=== PATIENT | female | born 1955 | race Caucasian/White ===

== ENCOUNTER 2018-02-12 19:16 | Emergency (ER) | payer OTHER ==
[~2018-02-12] VITALS: Ht 167.6 cm; Wt 118.4 kg
[~2018-02-12 19:16] MED LIST: HYDR1TAB12 PO
[2018-02-12] MEDS ORDERED: methylPREDNISolone SOD SUCC PF 125 MG/2 ML VIAL. IV ONE (19:45)
[2018-02-12] MEDS ORDERED: ONDANSETRON PF 4 MG/2 ML VIAL. IV ONE (19:45)
[2018-02-12] MEDS ORDERED: diphenhydrAMINE 50 MG/ML VIAL IM ONE (19:45)
--- NOTE | 2018-02-12 19:45 | PHYS DOC ---
Past History Past Medical History: No Pertinent History Past Surgical History: Other Smoking: Non-smoker Alcohol Use: Rarely Drug Use: None Adult General Chief Complaint Chief Complaint: HEADACHE [facility] HPI 62-year-old female patient with history of migraine headaches complaining of frontal sharp pain for the last 3 days with nausea and photophobia and phonophobia and rated her pain 6/10. Patient denies acute neck pain, focal neuro deficit, fever and chills, vomiting. Patient states she usually doesn't have nausea with her migraine headaches but this time she had nausea. Patient states she didn't continue [id number] or prescribed pain medication for the last 3 days. Review of Systems Review of Systems Constitutional: Denies fever or chills [] Eyes: Denies change in visual acuity, redness, or eye pain [] HENT: Denies nasal congestion or sore throat [] Respiratory: Denies cough or shortness of breath [] Cardiovascular: No additional information not addressed in HPI [] GI: Denies abdominal pain, nausea, vomiting, bloody stools or diarrhea [] : Denies dysuria or hematuria [] Musculoskeletal: Denies back pain or joint pain [] Integument: Denies rash or skin lesions [] Neurologic: Reports headache, denies focal weakness or sensory changes [] Endocrine: Denies polyuria or polydipsia [] All other systems were reviewed and found to be within normal limits, except as documented in this note. Allergies Allergies Allergies Coded Allergies Type Severity Reaction Last Updated Verified NSAIDS (Non-Steroidal Anti-Inflamma Allergy Unknown 01/04/14 No Physical Exam Physical Exam Constitutional: Well developed, well nourished, mild distress, non-toxic appearance. [] HENT: Normocephalic, atraumatic, bilateral external ears normal, oropharynx moist, no oral exudates, nose normal. [] Eyes: PERRLA, EOMI, conjunctiva normal, no discharge. [] Neck: Normal range of motion, no tenderness, supple, no stridor. [] Cardiovascular:Heart rate regular rhythm, no murmur [] Lungs & Thorax: Bilateral breath sounds clear to auscultation [] Abdomen: Bowel sounds normal, soft, no tenderness, no masses, no pulsatile masses. [] Skin: Warm, dry, no erythema, no rash. [] Back: No tenderness, no CVA tenderness. [] Extremities: No tenderness, no cyanosis, no clubbing, ROM intact, no edema. [] Neurologic: Alert and oriented X 3, normal motor function, normal sensory function, no focal deficits noted. [] Psychologic: Affect anxious, judgement normal, mood normal. [] EKG EKG [] Radiology/Procedures Radiology/Procedures [] Course & Med Decision Making Course & Med Decision Making Evaluation of patient in ER showed 62-year-old female patient with history of migraine headaches presented to ER with complaining of headache for the last 2 days with nausea. Patient had unremarkable physical exam and felt better with treatment in ER. Patient didn't want to have narcotic pain medication in ER or for home. Dragon Disclaimer Dragon Disclaimer This electronic medical record was generated, in whole or in part, using a voice recognition dictation system. Departure Departure: Impression: Primary Impression: Migraine headache Disposition: HOME, SELF-CARE (at 2044) Condition: IMPROVED Referrals: PCP,NO (PCP) Patient Instructions: Migraine Headache Additional Instructions: Drink plenty of liquids Follow-up with your primary care physician in 3-5 days Return to ER if not getting better Scripts Ondansetron (ZOFRAN ODT) 4 Mg Tab.rapdis 1 TAB SL Q8HRS, #15 TAB Prov: LILIANE BORJAS MD 02/12/18 Butalbital/Aspirin/Caffeine (FIORINAL 50-325-40 MG CAPSULE) 1 Each Capsule 1 EACH PO QID PRN for HEADACHE, #20 CAP Prov: LILIANE BORJAS MD 02/12/18 LILIANE BORJAS MD Feb 12, 2018 19:45
[2018-02-12] MEDS ORDERED: IV NORMAL SALINE 500ML 500 ML IV ONE (20:00)
[2018-02-12] MEDS ORDERED: diphenhydrAMINE 50 MG/ML VIAL IVP ONE (20:15)
[2018-02-12] MEDS ORDERED: BUTA1CAP31 PO (20:48)
[2018-02-12] MEDS ORDERED: ONDA4TAB10 SL (20:48)
[2018-02-12 21:13] VITALS: BP 131/86
== END 2018-02-12 21:19 | disposition home or self-care (01) ==
LOC: ER 19:16
DX: G43.909 Migraine, unspecified, not intractable, without status migrainosus (principal); Z88.6 Allergy status to analgesic agent
CPT/HCPCS: 96374; 96375; 99284; J1200; J2405; J2930; J7040

== ENCOUNTER 2018-02-21 18:32 | Emergency (ER) | payer OTHER ==
[~2018-02-21] VITALS: Ht 167.6 cm; Wt 118.4 kg
[~2018-02-21 18:32] MED LIST changes: +BUTA1CAP31 PO; +ONDA4TAB10 SL
--- NOTE | 2018-02-21 18:45 | ED.ADGEN ---
Past History Past Medical History: Arthritis, Migraines, Sinusitis Past Surgical History: Other Smoking: Non-smoker Alcohol Use: Rarely Drug Use: None Adult General Chief Complaint Chief Complaint ".. My head ache is no better.. I was seen on 02/13.. 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 Pt. seen on 02/13 Dr. Harrison with above hx and complaints. Pt. tx. for headache as Rx home- received Fiorinal and Zofran. Pt. to follow up. Pt. returns tonight with similar complaints as 02/13. Patient has no primary care. Patient had migraines for years. Findings are intermittent but the primary inciting factor is stress. Patient reports that high stress job and a recent diagnosis of diabetes poor control with a significant other. Patient has not had a CT evaluation of head since 2013. No history of travel. No history of trauma. No history of fever or chills. Has been exposed to other people in the family with colds. Patient denies any history of immunosuppression. Patient has never had a spinal tap for her headaches. Pain is usually relieved by home meds. Patient has a history of allergy to NSAIDs. Review of Systems Review of Systems Constitutional: Denies fever or chills [] Eyes: Denies change in visual acuity, redness, or eye pain []complaints of photophobia HENT: Denies nasal congestion or sore throat []complaints of photophobia Respiratory: Denies cough or shortness of breath [] Cardiovascular: No additional information not addressed in HPI [] GI: Denies abdominal pain, vomiting, bloody stools or diarrhea []history of nausea : Denies dysuria or hematuria [] Musculoskeletal: Denies back pain or joint pain [] Integument: Denies rash or skin lesions [] Neurologic: Complains of headache. Denies focal weakness or sensory changes [] Endocrine: Denies polyuria or polydipsia [] All other systems were reviewed and found to be within normal limits, except as documented in this note. Family History Family History Noncontributory Current Medications Current Medications Current Medications Medications (Trade) Dose Ordered Sig/Bishop Start Time Stop Time Status Last Admin Dose Admin Ceftriaxone Sodium (Rocephin Im) 1 gm 1X ONCE 02/21/18 20:15 02/21/18 20:21 DC 02/21/18 21:38 1 GM Clonidine HCl (Catapres Tts-2) 0.2 patch 1X ONCE 02/21/18 19:30 02/21/18 19:31 DC 02/21/18 20:26 0.2 PATCH Clonidine HCl (Catapres) 0.2 mg 1X ONCE 02/21/18 19:30 02/21/18 19:31 DC 02/21/18 20:05 0.2 MG Diphenhydramine HCl (Benadryl) 50 mg 1X ONCE 02/21/18 19:15 02/21/18 19:17 DC 02/21/18 20:04 50 MG Lactated Ringer's 1,000 ml @ 1,000 mls/hr 1X ONCE 02/21/18 19:15 02/21/18 20:14 DC 02/21/18 20:02 1,000 MLS/HR Prednisone (Prednisone) 60 mg 1X ONCE 02/21/18 20:15 02/21/18 20:21 DC 02/21/18 21:38 60 MG Prochlorperazine Edisylate (Compazine) 10 mg 1X ONCE 02/21/18 19:15 02/21/18 19:17 DC 02/21/18 20:04 10 MG Sodium Chloride 50 ml @ As Directed STK-MED ONCE 02/21/18 19:55 02/21/18 19:56 DC Sumatriptan Succinate (Imitrex) 6 mg 1X ONCE 02/21/18 20:45 02/21/18 20:57 DC 02/21/18 21:39 6 MG Valproic Acid (Depacon) 500 mg STK-MED ONCE 02/21/18 19:56 02/21/18 19:57 DC Valproic Acid 500 mg/Sodium Chloride 55 ml @ 55 mls/hr 1X STAT 02/21/18 19:06 02/21/18 20:05 DC 02/21/18 20:03 55 MLS/HR Allergies Allergies Allergies Coded Allergies Type Severity Reaction Last Updated Verified NSAIDS (Non-Steroidal Anti-Inflamma Allergy Unknown 01/04/14 No Physical Exam Physical Exam Constitutional: Mild to moderate distress, non-toxic appearance. [] HENT: Normocephalic, atraumatic, bilateral external ears normal, oropharynx moist, no oral exudates, nose normal. [] Eyes: PERRLA, EOMI, conjunctiva normal, no discharge. [] Neck: Normal range of motion, no tenderness, supple, no stridor. [] Cardiovascular:Heart rate regular rhythm, no murmur [] Lungs & Thorax: Bilateral breath sounds clear to auscultation [] Abdomen: Bowel sounds normal, soft, no tenderness, no masses, no pulsatile masses. [] Skin: Warm, dry, no erythema, no rash. [] Back: No tenderness, no CVA tenderness. [] Extremities: No tenderness, no cyanosis, no clubbing, ROM intact, no edema. good. Patient ambulatory without problems Neurologic: Alert and oriented X 3, normal motor function, normal sensory function, no focal deficits noted. []DTR +2 patella and brachial. No drift. [employer] Operator Truck Driver equal. Psychologic: Affect anxious judgement normal, mood normal. [] Current Patient Data Vital Signs Vital Signs Date Time Temp Pulse Resp B/P (MAP) Pulse Ox O2 Delivery O2 Flow Rate FiO2 02/21/18 22:30 64 18 120/62 (81) 96 Room Air 02/21/18 18:32 98.4 Lab Results Laboratory Tests Test 02/21/18 18:55 02/21/18 19:20 Urine Collection Type Unknown Urine Color Yellow Urine Clarity Clear Urine pH 6.0 Urine Specific [place] 1.020 Urine Protein Neg (NEG-TRACE) Urine Glucose (UA) Neg mg/dL (NEG) Urine Ketones (Stick) Neg mg/dL (NEG) Urine Blood Large (NEG) Urine Nitrite Neg (NEG) Urine Bilirubin Neg (NEG) Urine Urobilinogen Dipstick 0.2 mg/dL (0.2 mg/dL) Urine Leukocyte Esterase Neg (NEG) Urine RBC 11-20 /HPF (0-2) Urine WBC Occ /HPF (0-4) Urine Squamous Epithelial Cells Mod /LPF Urine Bacteria Few /HPF (0-FEW) Urine Mucus Slight /LPF Urine Opiates Screen Neg (NEG) Urine Methadone Screen Neg (NEG) Urine Barbiturates Neg (NEG) Urine Phencyclidine Screen Neg (NEG) Urine Amphetamine/Methamphetamine Neg (NEG) Urine Benzodiazepines Screen Neg (NEG) Urine Cocaine Screen Neg (NEG) Urine Cannabinoids Screen Neg (NEG) Urine Ethyl Alcohol Neg (NEG) White Blood Count 10.1 x10^3/uL (4.0-11.0) Red Blood Count 4.40 x10^6/uL (3.50-5.40) Hemoglobin 12.1 g/dL (12.0-15.5) Hematocrit 36.5 % (36.0-47.0) Mean Corpuscular Volume 83 fL (79-100) Mean Corpuscular Hemoglobin 28 pg (25-35) Mean Corpuscular Hemoglobin Concent 33 g/dL (31-37) Red Cell Distribution Width 16.3 % (11.5-14.5) H Platelet Count 236 x10^3/uL (140-400) Neutrophils (%) (Auto) 70 % (31-73) Lymphocytes (%) (Auto) 20 % (24-48) L Monocytes (%) (Auto) 8 % (0-9) Eosinophils (%) (Auto) 2 % (0-3) Basophils (%) (Auto) 1 % (0-3) Neutrophils # (Auto) 7.0 x10^3uL (1.8-7.7) Lymphocytes # (Auto) 2.0 x10^3/uL (1.0-4.8) Monocytes # (Auto) 0.8 x10^3/uL (0.0-1.1) Eosinophils # (Auto) 0.2 x10^3/uL (0.0-0.7) Basophils # (Auto) 0.1 x10^3/uL (0.0-0.2) Erythrocyte Sedimentation Rate 78 (0-25) H Prothrombin Time 10.7 SEC (9.4-11.4) Prothrombin Time INR 1.0 (0.9-1.1) PTT 27 SEC (23-33) Sodium Level 139 mmol/L (136-145) Potassium Level 3.4 mmol/L (3.5-5.1) L Chloride Level 104 mmol/L (98-107) Carbon Dioxide Level 30 mmol/L (21-32) Anion Gap 5 (6-14) L Blood Urea Nitrogen 14 mg/dL (7-20) Creatinine 0.9 mg/dL (0.6-1.0) Estimated GFR (Cockcroft-Gault) 63.9 Glucose Level 90 mg/dL (70-99) Calcium Level 9.4 mg/dL (8.5-10.1) Magnesium Level 2.4 mg/dL (1.8-2.4) Creatine Kinase 74 U/L (26-192) Creatine Kinase MB (Mass) 0.6 ng/mL (0.0-3.6) Creatine Kinase MB Relative Index 0.8 % (0-4) Troponin I Quantitative < 0.017 ng/mL (0-0.055) DI-Izl-N-Type Natriuretic Peptide 39 pg/mL (0-124) EKG EKG [] Radiology/Procedures Radiology/Procedures CT shows no shift, mass, edema, bleed or fracture. Does have findings of sinusitis .. See formal report when available Course & Med Decision Making Course & Med Decision Making Pertinent Labs and Imaging studies reviewed. (See chart for details). Home as previous directed. Follow-up primary care. Consider follow-up with neurology. Return if any concerns. Patient reports marked improvement of symptoms at time of discharge. Patient attempt without problems. Keflex 500 x 3 times a day. Flonase at HS. NS saline rinses. Pt. declines spinal tap at this time. Exhibits UCAR capacity. Seems to under stands risks and benefit of spinal tap. Patient must follow-up. [] Final Impression Final Impression 1. Hx of Migraine Headaches[] 2. Out Pt. Failure on Fiorinal and Zofran 3. Accelerated hypertension 4. Maxillary Sinusitis 5. Elevated ESR 6. Hypokalemia Dragon Disclaimer Dragon Disclaimer This electronic medical record was generated, in whole or in part, using a voice recognition dictation system. FRANK BLANK MD Feb 21, 2018 18:45
[2018-02-21] MEDS ORDERED: VALPROATE SODIUM 500 MG in IV NORMAL SALINE 50ML 50 ML IV STA (19:06)
[2018-02-21] MEDS ORDERED: diphenhydrAMINE 50 MG/ML VIAL IV ONE (19:15)
[2018-02-21] MEDS ORDERED: PROCHLORPERAZINE 10 MG/2 ML VIAL. IV ONE (19:15)
[2018-02-21] MEDS ORDERED: IV RINGERS SOLUTION,LACTATED 1,000 ML IV ONE (19:15)
[2018-02-21] MEDS ORDERED: cloNIDine HCL 0.1 MG TABLET PO ONE (19:30)
[2018-02-21] MEDS ORDERED: cloNIDine TTS-2 1 PATCH PATCH TD ONE (19:30)
--- NOTE | 2018-02-21 19:31 | EKG ---
[address] [address] Test Date: 2018-02-21 Test Time: 19:27:02 Pat Name: JOSSELINE FAUST Department: Room: Gender: F Pass Worker: : [id number] Requested By: FRANK BLANK Order Number: [id number] Reading MD: Measurements Intervals [place] Rate: 73 P: 51 GA: 184 QRS: 2 QRSD: 86 T: 30 QT: 398 QTc: 442 Interpretive Statements SINUS RHYTHM NORMAL ECG RI6.01 No previous ECG available for comparison
[2018-02-21 19:44] LABS: BASO # 0.1 x10^3/uL (0.0-0.2); BASO % 1 % (0-3); EOS # 0.2 x10^3/uL (0.0-0.7); EOS % 2 % (0-3); HEMATOCRIT 36.5 % (36.0-47.0); HEMOGLOBIN 12.1 g/dL (12.0-15.5); LYMPH % 20 % (24-48); MEAN CORPUSCULAR HEMOGLOBIN 28 pg (25-35); MEAN CORPUSCULAR HGB CONC 33 g/dL (31-37); MEAN CORPUSCULAR VOLUME 83 fL (79-100); MONO # 0.8 x10^3/uL (0.0-1.1); MONO % 8 % (0-9); NEUT % 70 % (31-73); PLATELET COUNT 236 x10^3/uL (140-400); RED CELL DISTRIBUTION WIDTH 16.3 % (11.5-14.5); WHITE BLOOD COUNT 10.1 x10^3/uL (4.0-11.0)
[2018-02-21] MEDS ORDERED: IV NORMAL SALINE 50ML 50 ML ONE (19:55)
--- NOTE | 2018-02-21 19:55 | RAD ---
CT head without intravenous contrast History: Severe headache. Facial pain today. Comparison: CT head February 01, 2014. Technique: Axial images are obtained of the head from the skull base through the vertex without IV contrast. Exposure: One or more of the following individualized dose reduction techniques were utilized for this examination: 1. Automated exposure control 2. Adjustment of the mA and/or kV according to patient size 3. Use of iterative reconstruction technique Findings: The ventricles are appropriate in size, shape, and location for the patient's age. No obvious intracranial mass, mass-effect, midline shift, hemorrhage or obvious acute infarction is identified. Basilar cisterns are patent. Bone windows demonstrate no acute calvarial abnormality. Impression: No acute intracranial process. Please note that CT can be relatively insensitive to acute ischemic infarction for up to 24 hours after symptom onset. Electronically signed by: Pankaj Sexton MD (02/21/2018 7:52 PM) [facility]
[2018-02-21] MEDS ORDERED: VALPROATE SODIUM 500 MG/5 ML VIAL IV ONE (19:56)
--- NOTE | 2018-02-21 19:57 | RAD ---
CT orbits without contrast History: Severe headache. Technique: CT of the orbits was performed without intravenous contrast. Axial, sagittal, and coronal reconstructions were obtained. Exposure: One or more of the following individualized dose reduction techniques were utilized for this examination: 1. Automated exposure control 2. Adjustment of the mA and/or kV according to patient size 3. Use of iterative reconstruction technique Findings: No acute fracture is identified. Bilateral orbits and orbital contents appear intact. Mild bilateral maxillary sinus mucosal thickening is seen. Impression: 1. Bilateral orbits have unremarkable appearance. Electronically signed by: Pankaj Sexton MD (02/21/2018 7:54 PM) [facility]
[2018-02-21 20:04] LABS: BACTERIA,URINE FEW /HPF (0-FEW); BILIRUBIN,URINE NEG (NEG); CLARITY,URINE CLEAR; COLOR,URINE YELLOW; GLUCOSE,URINE NEG (NEG); NITRITE,URINE NEG (NEG); SQUAMOUS EPITHELIAL CELL,UR MOD /LPF; UROBILINOGEN,URINE 0.2 mg/dL (0.2 mg/dL); WBC,URINE OCC /HPF (0-4)
[2018-02-21 20:12] LABS: BARBITURATES NEG (NEG); BENZODIAZEPINES NEG (NEG); CANNABINOIDS NEG (NEG); COCAINE NEG (NEG); METHADONE NEG (NEG); OPIATES NEG (NEG); PHENCYCLIDINE NEG (NEG)
[2018-02-21 20:13] LABS: CALCIUM 9.4 mg/dL (8.5-10.1); CREATININE 0.9 mg/dL (0.6-1.0); GFR 63.9; MAGNESIUM 2.4 mg/dL (1.8-2.4); POTASSIUM 3.4 mmol/L (3.5-5.1)
[2018-02-21 20:13] LABS: AMPHETAMINE/METHAMPHETAMINE NEG (NEG)
[2018-02-21] MEDS ORDERED: cefTRIAXone IM 1 GM VIAL IM ONE (20:15)
[2018-02-21] MEDS ORDERED: predniSONE 20 MG TABLET PO ONE (20:15)
[2018-02-21] MEDS ORDERED: SUMAtriptan SUCC 6 MG/0.5 ML VIAL SQ ONE (20:45)
[2018-02-21 21:03] LABS: SEDIMENTATION RATE 78 (0-25)
[2018-02-21] MEDS ORDERED: TRAM1TAB4 PO (22:07)
[2018-02-21] MEDS ORDERED: FLUT9.9S NS (22:07)
[2018-02-21] MEDS ORDERED: CEPH-264 PO (22:07)
[2018-02-21] MEDS ORDERED: PRED50TA PO (22:07)
[2018-02-21] MEDS ORDERED: ONDA8TAB12 PO (22:09)
[2018-02-21 22:30] VITALS: BP 120/62
== END 2018-02-21 22:30 | disposition home or self-care (01) ==
LOC: ER 18:32
DX: J32.0 Chronic maxillary sinusitis (principal); I10 Essential (primary) hypertension; E87.6 Hypokalemia; G43.909 Migraine, unspecified, not intractable, without status migrainosus; M19.90 Unspecified osteoarthritis, unspecified site; R70.0 Elevated erythrocyte sedimentation rate; Z88.6 Allergy status to analgesic agent
CPT/HCPCS: 36415; 70450; 70480; 80048; 80307; 81001; 82553; 83735; 83880; 84484; 85025; 85610; 85651; 85730; 93005; 96365; 96366; 96372; 96375; 99285; J0696; J0780; J1200; J3030; J3490; J7120; J7512; G0479

== ENCOUNTER → 2018-03-13 | Outpatient (CLI) | payer OTHER ==
[2018-02-21 22:30] VITALS: BP 120/62
[~2018-03-13] MED LIST changes: +CEPH-264 PO; +FLUT9.9S NS; +ONDA8TAB12 PO; +PRED50TA PO; +TRAM1TAB4 PO
--- NOTE | 2018-03-13 17:52 | RAD ---
EXAM: AP and lateral views of the bilateral knees DATE: 03/13/2018 12:00 AM INDICATION: knee pain-bilateral COMPARISON: No Prior FINDINGS: Right knee: Severe medial compartment joint space narrowing with bulky tricompartment osteophytes. No right knee joint effusion. No evidence of acute fracture or dislocation. Left knee: Severe medial compartment joint space narrowing and tricompartmental osteophytes are seen. No knee joint effusion. No evidence of acute fracture or dislocation. IMPRESSION: 1. Severe bilateral knee joint osteoarthritis. 2. No evidence of acute fracture or dislocation. Electronically signed by: Barry Mehta MD (03/13/2018 5:48 PM) [facility]
== END | disposition home or self-care (01) ==
LOC: PMG 11:33
PROVIDERS: ATTEND Physician Assistant
DX: M17.0 Bilateral primary osteoarthritis of knee (principal); M25.762 Osteophyte, left knee; M25.761 Osteophyte, right knee; I10 Essential (primary) hypertension; E87.6 Hypokalemia; G43.909 Migraine, unspecified, not intractable, without status migrainosus; Z88.6 Allergy status to analgesic agent
CPT/HCPCS: 73560

== ENCOUNTER 2018-09-16 17:33 | Emergency (ER) | payer OTHER ==
[~2018-09-16] VITALS: Ht 165.1 cm; Wt 113.4 kg
[2018-09-16] MEDS ORDERED: PRED20TA PO (18:13)
[2018-09-16] MEDS ORDERED: HYDR-3165 PO (18:13)
[2018-09-16] MEDS ORDERED: HYDROcodone/APAP 5/325MG 1 TAB TABLET PO ONE (18:15)
[2018-09-16] MEDS ORDERED: DEXAMETHASONE SOD PHOS 10 MG/ML VIAL IM ONE (18:15)
--- NOTE | 2018-09-16 18:15 | PHYS DOC ---
Adult General Chief Complaint Chief Complaint knees pain HPI HPI 63 years old female presented emergency department with bilateral knee pain that 's chronic in nature she takes Tylenol for pain she was told she has severe erosive arthritis and she is due for knee replacement however her insurance will not pay for it. She is here requesting pain management Review of Systems Review of Systems Constitutional: Denies fever or chills [] Eyes: Denies change in visual acuity, redness, or eye pain [] HENT: Denies nasal congestion or sore throat [] Respiratory: Denies cough or shortness of breath [] Cardiovascular: No additional information not addressed in HPI [] GI: Denies abdominal pain, nausea, vomiting, bloody stools or diarrhea [] : Denies dysuria or hematuria [] Musculoskeletal: Denies back pain Integument: Denies rash or skin lesions [] Neurologic: Denies headache, focal weakness or sensory changes [] Endocrine: Denies polyuria or polydipsia [] All other systems were reviewed and found to be within normal limits, except as documented in this note. Allergies Allergies Allergies Coded Allergies Type Severity Reaction Last Updated Verified NSAIDS (Non-Steroidal Anti-Inflamma Allergy Unknown 01/04/14 No Physical Exam Physical Exam Constitutional: Well developed, well nourished, no acute distress, non-toxic appearance. [] HENT: Normocephalic, atraumatic, bilateral external ears normal, oropharynx moist, no oral exudates, nose normal. [] Eyes: PERRLA, EOMI, conjunctiva normal, no discharge. [] Neck: Normal range of motion, no tenderness, supple, no stridor. [] Cardiovascular:Heart rate regular rhythm, no murmur [] Lungs & Thorax: Bilateral breath sounds clear to auscultation [] Abdomen: Bowel sounds normal, soft, no tenderness, no masses, no pulsatile masses. [] Skin: Warm, dry, no erythema, no rash. [] Back: No tenderness, no CVA tenderness. [] Extremities: No tenderness, no cyanosis, no clubbing, ROM intact, no edema. [] Neurologic: Alert and oriented X 3, normal motor function, normal sensory function, no focal deficits noted. [] Psychologic: Affect normal, judgement normal, mood normal. [] EKG EKG [] Radiology/Procedures Radiology/Procedures [] Course & Med Decision Making Course & Med Decision Making Pertinent Labs and Imaging studies reviewed. (See chart for details) [] Final Impression Final Impression [] Problems: (1) Arthritis Dragon Disclaimer Dragon Disclaimer This electronic medical record was generated, in whole or in part, using a voice recognition dictation system. CHANDA FINCH MD Sep 16, 2018 18:15
[2018-09-16 18:40] VITALS: BP 142/85
== END 2018-09-16 18:42 | disposition home or self-care (01) ==
LOC: ER 17:33
DX: M13.862 Other specified arthritis, left knee (principal); M13.861 Other specified arthritis, right knee; Z88.6 Allergy status to analgesic agent
CPT/HCPCS: 96372; 99283; J1100

== ENCOUNTER 2019-02-19 12:24 | Emergency (ER) | payer OTHER ==
[~2019-02-19] VITALS: Ht 165.1 cm; Wt 111.1 kg
[~2019-02-19 12:24] MED LIST changes: +HYDR-3165 PO; -HYDR1TAB12 PO; +HYDR1TAB13 PO; +PRED20TA PO
[2019-02-19 12:39] VITALS: BP 130/90
[2019-02-19] MEDS ORDERED: traMADol 50 MG TABLET PO ONE (13:00)
--- NOTE | 2019-02-19 13:08 | RAD ---
KNEE RIGHT 3V (AP, oblique, and lateral views): DATE: 02/19/2019 12:51 PM INDICATION: Pain COMPARISON: 03/13/2018 FINDINGS: Bones: There is no evidence of acute fracture or dislocation. Joints: Severe tricompartmental osteoarthritis with bulky osteophytes. There is no joint effusion. Miscellaneous: None. IMPRESSION: No evidence of acute fracture. Severe osteoarthritis. Electronically signed by: John Boone MD (02/19/2019 1:05 PM) [id number]
[2019-02-19] MEDS ORDERED: HYDR-3165 PO (13:35)
--- NOTE | 2019-02-19 13:35 | PHYS DOC ---
Past History Past Medical History: Arthritis Past Surgical History: Other Smoking: Non-smoker Alcohol Use: None Drug Use: None Adult General Chief Complaint Chief Complaint: KNEE INJURY HPI HPI Patient is a 63-year-old female presents complaining of right knee pain and swelling. No trauma. No numbness or tingling. This started 3 days ago. No relief with home medicines. No nausea or vomiting. No PE risk factors. No weakness. Increased pain with movement. Moderate discomfort. No relief with an [id number], homeopathic pain patch[] Review of Systems Review of Systems Constitutional: Denies fever or chills [] Eyes: Denies change in visual acuity, redness, or eye pain [] HENT: Denies nasal congestion or sore throat [] Respiratory: Denies cough or shortness of breath [] Cardiovascular: No chest pain or palpitations[] GI: Denies abdominal pain, nausea, vomiting, bloody stools or diarrhea [] : Denies dysuria or hematuria [] Musculoskeletal: Denies back pain, see history of present illness[] Integument: Denies rash or skin lesions [] Neurologic: Denies headache, focal weakness or sensory changes [] Endocrine: Denies polyuria or polydipsia [] All other systems were reviewed and found to be within normal limits, except as documented in this note. Current Medications Current Medications Current Medications Medications (Trade) Dose Ordered Sig/Bishop Start Time Stop Time Status Last Admin Dose Admin Tramadol HCl (Ultram) 50 mg 1X ONCE 02/19/19 13:00 02/19/19 13:01 DC 02/19/19 13:03 50 MG Allergies Allergies Allergies Coded Allergies Type Severity Reaction Last Updated Verified NSAIDS (Non-Steroidal Anti-Inflamma Allergy Unknown 02/19/19 No Physical Exam Physical Exam Constitutional: Well developed, well nourished, no acute distress, non-toxic appearance. [] HENT: Normocephalic, atraumatic, bilateral external ears normal, oropharynx moist, no oral exudates, nose normal. [] Eyes: PERRLA, EOMI, conjunctiva normal, no discharge. [] Neck: Normal range of motion, no tenderness, supple, no stridor. [] Cardiovascular:Heart rate regular rhythm, no murmur [] Lungs & Thorax: Bilateral breath sounds clear to auscultation [] Abdomen: Not examined. [] Skin: Warm, dry, no erythema, no rash. [] Back: No tenderness, no CVA tenderness. [] Extremities: Right knee has full active range of motion. Some edema, no effusion, no varus or valgus laxity, no ballotable patella, no Juan Antonio test, negative drawer. Patient is distally neurovascularly intact. A joint above and a joined below were evaluated and were normal. The other 3 extremities show: No tenderness, no cyanosis, no clubbing, ROM intact, no edema. [] Neurologic: Alert and oriented X 3, normal motor function, normal sensory functi on, no focal deficits noted. [] Psychologic: Affect normal, judgement normal, mood normal. [] Current Patient Data Vital Signs Vital Signs Date Time Temp Pulse Resp B/P (MAP) Pulse Ox O2 Delivery O2 Flow Rate FiO2 02/19/19 13:03 Room Air 02/19/19 12:39 98.2 75 18 99 EKG EKG [] Radiology/Procedures Radiology/Procedures PROCEDURE: KNEE RIGHT 3V KNEE RIGHT 3V (AP, oblique, and lateral views): DATE: 02/19/2019 12:51 PM INDICATION: Pain COMPARISON: 03/13/2018 FINDINGS: Bones: There is no evidence of acute fracture or dislocation. Joints: Severe tricompartmental osteoarthritis with bulky osteophytes. There is no joint effusion. Miscellaneous: None. IMPRESSION: No evidence of acute fracture. Severe osteoarthritis.[] Course & Med Decision Making Course & Med Decision Making Pertinent Labs and Imaging studies reviewed. (See chart for details) Medical decision making: There is no evidence of a fracture dislocation. No evidence of a DVT. No evidence of neuro or vascular compromise. ED course: Patient arrived, was placed in bed, and tolerated exam well. She was given pain medicine. She was transported to and from radiology with any complications. After return the imaging findings, these were discussed with the patient who voiced understanding. All questions were answered. She was discharged in improved condition.[] Dragon Disclaimer Dragon Disclaimer This electronic medical record was generated, in whole or in part, using a voice recognition dictation system. Departure Departure: Impression: Primary Impression: Right knee pain Disposition: 01 HOME, SELF-CARE Condition: IMPROVED Referrals: BISHOP CHEEK (PCP) Follow-up in 2 days Patient Instructions: Knee Pain Additional Instructions: Follow-up with your regular doctor in 2 days. Apply warm compresses for 15 minutes at a time, at least 4 times per day. Take medication as prescribed. Return to the ER if worsening pain, weakness, or any other concerns. Scripts Hydrocodone Bit/Acetaminophen (NORCO 5-325 TABLET) 1 Each Tablet 1 TAB PO Q4-6HRS for severe pain, #20 TAB Prov: SAMPSON AVALOS DO 02/19/19 Problem Qualifiers Primary Impression: Right knee pain Chronicity: acute Qualified Codes: M25.561 - Pain in right knee SAMPSON AVALOS DO Feb 19, 2019 13:35
== END 2019-02-19 13:42 | disposition home or self-care (01) ==
LOC: ER 12:24
DX: M25.561 Pain in right knee (principal); R22.41 Localized swelling, mass and lump, right lower limb; M19.90 Unspecified osteoarthritis, unspecified site; Z88.6 Allergy status to analgesic agent
CPT/HCPCS: 73562; 99284